=== PATIENT | male | born 2005 | race Caucasian/White ===

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

== ENCOUNTER 2024-10-17 15:55 | Outpatient (REF) | payer MEDICARE, MEDICAID, SELFPAY ==
[2024-10-17 17:11] LABS: Hemoglobin A1C 4.9 % (<5.7)
[2024-10-17 17:15] LABS: ALT 66 U/L (16-63); AST 29 U/L (15-37); Albumin 4.5 g/dL (3.4-5.0); Alkaline Phosphatase 96 U/L (46-116); Anion Gap 7.8 mmol/L (3-11); BUN 11 mg/dL (7-18); Bilirubin, Total 1.2 mg/dL (0.2-1.0); CO2 30.2 mmol/L (21.0-32.0); Calcium 10.0 mg/dL (8.5-10.1); Calculated LDL 116 mg/dL (<100); Chloride 102 mmol/L (98-107); Cholesterol 186 mg/dL (<200); Estimated GFR 129.13 (mL/min/1.73m2); Glucose 96 mg/dL (74-106); HDL Cholesterol 36 mg/dL (>or=40); Potassium 4.0 mmol/L (3.5-5.1); Sodium 140 mmol/L (136-145); Total Protein 8.2 g/dL (6.4-8.2); Triglyceride 173 mg/dL (<150)
== END 2024-10-17 15:56 | disposition home or self-care (01) ==
LOC: NCHCN 15:55
PROVIDERS: Visit Provider Student in an Organized Health Care Education/Training Program
DX: Z13.1 Encounter for screening for diabetes mellitus (principal); Z13.220 Encounter for screening for lipoid disorders
CPT/HCPCS: 80053; 80061; 83036

== ENCOUNTER → 2025-02-16 02:30 | Outpatient (CLI) | payer MEDICARE, MEDICAID, SELFPAY ==
--- NOTE | 2025-02-16 11:05 | DI.US_ITS ---
Exam(s) US SOFT TISS ABD WALL/LOW BACK EXAM: US SOFT TISS ABD WALL/LOW BACK CLINICAL HISTORY: MASS RT HIP R22.41 2X1 IN MASS RT LOWER ABD LATERAL ASPECT ? LIPOMA IN AREA. TECHNIQUE: Ultrasound was performed using standard protocol. COMPARISON: CT CT ABDOMEN PELVIS W from 02/12/2022 FINDINGS: Sonographic assessment utilizing grayscale and color Doppler imaging was performed and targeted to the area of clinical concern at the right lateral hip. In the area of palpable abnormality, in the subcutaneous, there is a homogeneous solid lesion without vascularity measuring 3.6 x 1.5 x 5.7 cm. The echogenicity is consistent with a lipoma. There are no suspicious features. IMPRESSION: Palpable abnormality corresponds to a 5.7 centimeter simple lipoma. DATA REPOSITORY:
== END ==
LOC: DI 02:30
PROVIDERS: Visit Provider Student in an Organized Health Care Education/Training Program
DX: D17.1 Benign lipomatous neoplasm of skin and subcutaneous tissue of trunk (principal)
CPT/HCPCS: 76705